=== PATIENT | female | born 1985 | race Caucasian/White ===

== ENCOUNTER 2020-07-03 09:42 | Emergency (ER) | payer SELFPAY ==
[2020-07-03] MEDS ORDERED: CEFTRIAXONE 250 MG/VIAL ONE (10:43)
[2020-07-03] MEDS ORDERED: LIDOCAINE 1% MPF 2 ML AMPULE ONE (10:43)
[2020-07-03] MEDS ORDERED: AZITHROMYCIN 250 MG TAB ONE (10:43)
[2020-07-03 10:53] LABS: Urine Blood NEGATIVE (NEG); Urine Glucose NEGATIVE (NEG); Urine Protein NEGATIVE (NEG); Urine Specific Gravity 1.025 (1.005-1.030)
[2020-07-03 10:54] LABS: Urine Bacteria <20 /HPF (<20); Urine Culture Reflex Order NOT NEEDED; Urine Mucus 1+ /HPF (NONE SEEN); Urine RBC <5 /HPF (NONE SEEN)
--- NOTE | 2020-07-03 11:43 | EDPHYS ---
Physician Documentation [facility] Name: Wendy Hernandez Age: 35 yrs Sex: Female : 1985 Arrival Date: 07/03/2020 Time: 09:43 Bed 20 Private MD: ED Physician Bryce Graff HPI: 07/03 10:26 This 35 yrs old Female presents to ER via Ambulatory with complaints of STD pm1 Exposure, Skin Sore(s). 10:26 The patient presents with vaginal discharge, that is white discharge. Onset: The pm1 symptoms/episode began/occurred 2 day(s) ago. Modifying factors: The symptoms are alleviated by nothing, the symptoms are aggravated by nothing. Associated signs and symptoms: Pertinent positives: blisters to feet and sores on mouth. Severity of symptoms: in the emergency department the symptoms are unchanged. The patient is sexually active, reportedly has a single partner, does not use protection during intercourse. The patient's method of control includes tubal ligation. The patient has not recently seen a physician. Patient is concerned that she might have a sexually transmitted disease because her boyfriend is likely cheating on her. She reports whitish vaginal discharge. No dysuria. Patient is concerned that her blisters on her feet are syphilitic but they started after she went hiking. 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 - Social history:: Smoking status: Patient reports the use of cigarette tobacco products, smokes one pack cigarettes per day. ROS: 15:09 Positive for vaginal discharge, Negative for burning with urination, difficulty pm1 urinating, vaginal bleeding, vaginal itching. 15:09 Constitutional: Negative for fever, chills, and weight loss, Cardiovascular: Negative for chest pain, palpitations, and edema, Respiratory: Negative for shortness of breath, cough, wheezing, and pleuritic chest pain, Abdomen/GI: Negative for abdominal pain, nausea, vomiting, diarrhea, and constipation, Back: Negative for injury and pain, MS/Extremity: Negative for injury and deformity. 15:09 Neuro: Negative for headache, weakness, numbness, tingling, and seizure. 15:09 Skin: Positive for blisters to sides of both feet and toes. Exam: 10:23 : Pelvic Exam: External exam: is normal, Speculum exam: normal findings, no bleeding pm1 is noted, no cervicitis, bimanual exam reveals normal findings, no cervical motion tenderness, no uterine tenderness, no adnexa tenderness or masses bilaterally, Resort Keeper: Yenny NULL. 15:09 Constitutional: This is a well developed, well nourished patient who is awake, alert, pm1 and in no acute distress. Head/Face: Normocephalic, atraumatic. 15:09 Back: No spinal tenderness. No costovertebral tenderness. Full range of motion. 15:09 Cardiovascular: Exam negative for acute changes, Rate: normal, Rhythm: regular, Pulses: no pulse deficits are appreciated. 15:09 Respiratory: Exam negative for acute changes, respiratory distress, shortness of breath. 15:09 Abdomen/GI: Exam negative for acute changes, Inspection: abdomen appears normal, Palpation: abdomen is soft and non-tender, in all quadrants. 15:09 Skin: Appearance: normal except for affected area, lesion(s), probable bullae noted, located on the lateral side of left heel, no macular rash to soles or palms. 15:09 Neuro: Exam negative for acute changes, Orientation: is normal, Mentation: is normal, Motor: is normal, moves all fours. Vital Signs: 10:09 BP 130 / 101; Pulse 105; Resp 17 S; Temp 99.1(O); Pulse Ox 98% on R/A; Weight 89.81 kg ca1 (R); Height 5 ft. 5 in. (165.10 cm) (R); 11:53 BP 130 / 89; Pulse 97; Resp 14; Pulse Ox 100% ; sv 10:09 Body Mass Index 32.95 (89.81 kg, 165.10 cm) ca1 MDM: 10:00 Patient medically screened. pm1 11:39 Data reviewed: vital signs. Data interpreted: Pulse oximetry: on room air is 98 %. pm1 Interpretation: normal. Counseling: I had a detailed discussion with the patient and/or guardian regarding: the historical points, exam findings, and any diagnostic results supporting the discharge/admit diagnosis, lab results, the need for outpatient follow up, STD clinic or PCP, to return to the emergency department if symptoms worsen or persist or if there are any questions or concerns that arise at home. 07/03 10:14 Order name: Urine Microscopic Only; Complete Time: 11:19 pm1 07/03 10:19 Order name: GC (GONORR/CHLAMYDIA) Probe sv 07/03 10:19 Order name: Wet Prep; Complete Time: 11:19 sv 07/03 10:41 Order name: Urine Dipstick--Ancillary (enter results); Complete Time: 11:19 eb 07/03 10:14 Order name: Urine Dipstick-Ancillary (obtain specimen); Complete Time: 10:35 pm1 07/03 10:14 Order name: Urine Test (obtain specimen); Complete Time: 10:35 pm1 07/03 10:41 Order name: Urine --Ancillary (enter results); Complete Time: 11:19 eb Administered Medications: 10:35 Drug: Rocephin (cefTRIAXone) 250 mg Route: IM; Site: right gluteus; sv 11:08 Follow up: Response: No adverse reaction sv 10:35 Drug: AZITHromycin 1 grams Route: PO; sv 11:08 Follow up: Response: No adverse reaction sv Disposition: 14:28 Co-signature as Attending Physician, Bryce Graff MD. rn Disposition: 07/03/20 11:42 Discharged to Home. Impression: Contact with and (suspected) exposure to infections with a predominantly sexual mode of transmission, Blister (nonthermal) of foot. - Condition is Stable. - Discharge Instructions: Blisters, Adult, Sexually Transmitted Disease, Sexually Transmitted Disease, [id number], Safe Sex. - Medication Reconciliation Form, Thank You Letter, Antibiotic Education, Prescription Opioid Use form. - Follow up: Emergency Department; When: As needed; Reason: Worsening of condition. Follow up: Private Physician; When: 2 - 3 days; Reason: Recheck today's complaints, Continuance of care, Re-evaluation by your physician. - Problem is new. - Symptoms have improved. Signatures: Dispatcher [employer] Yenny Servin RN RN sv Nieto, Roman, MD MD rn Marinas, Patrick, SOFTWARE DEPLOYMENT ENGINEER SOFTWARE DEPLOYMENT ENGINEER pm1 Corrections: (The following items were deleted from the chart) 11:53 11:42 07/03/2020 11:42 Discharged to Home. Impression: Contact with and (suspected) sv exposure to infections with a predominantly sexual mode of transmissionBlister (nonthermal) of foot. Condition is Stable. Forms are Medication Reconciliation Form, Thank You Letter, Antibiotic Education, Prescription Opioid Use. Follow up: Emergency Department; When: As needed; Reason: Worsening of condition. Follow up: Private Physician; When: 2 - 3 days; Reason: Recheck today's complaints, Continuance of care, Re-evaluation by your physician. Problem is new. Symptoms have improved. pm1
--- NOTE | 2020-07-03 11:43 | ER ---
Nurse's Notes [facility] Name: Wendy Hernandez Age: 35 yrs Sex: Female : 1985 Arrival Date: 07/03/2020 Time: 09:43 Bed 20 Private MD: Diagnosis: Blister (nonthermal) of foot;Contact with and (suspected) exposure to infections with a predominantly sexual mode of transmission Presentation: 07/03 10:08 Coronavirus screen: Client denies travel out of the [place] in the last 14 days. At this sv time, the client does not indicate any symptoms associated with coronavirus-19. Ebola Screen: No symptoms or risks identified at this time. Risk Assessment: Do you want to hurt yourself or someone else? Patient reports no desire to harm self or others. 10:08 Method Of Arrival: Ambulatory sv 10:09 Chief complaint: Patient states: Pt crying. Sates, "Blisters on sole of feet. Sore in ca1 mouth and tongue. Whitish vaginal discharge, with odor". Initial Sepsis Screen: Does the patient meet any 2 criteria? No. Patient's initial sepsis screen is negative. Does the patient have a suspected source of infection? No. Patient's initial sepsis screen is negative. Onset of symptoms was July 03, 2020. 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 - Social history:: Smoking status: Patient reports the use of cigarette tobacco products, smokes one pack cigarettes per day. Screenin:06 Abuse screen: Denies threats or abuse. Denies injuries from another. Nutritional sv screening: No deficits noted. Tuberculosis screening: No symptoms or risk factors identified. Fall Risk None identified. Assessment: 10:15 General: Appears in no apparent distress. comfortable, well developed, Behavior is sv cooperative, appropriate for age, anxious. Pain: Denies pain. Neuro: Level of Consciousness is awake, alert, obeys commands, Oriented to person, place, time, situation, Moves all extremities. Full function Gait is steady. Respiratory: Respiratory effort is even, unlabored, Respiratory pattern is regular, symmetrical. : Reports discharge, from vagina that is white. Derm: Skin is intact, Skin is pink, warm \\T\\ dry. Rash noted that is on right hand, left hand, right foot and left foot. Musculoskeletal: Range of motion: intact in all extremities. 11:52 Reassessment: Patient appears in no apparent distress at this time. No changes from sv previously documented assessment. Patient and/or family updated on plan of care and expected duration. Pain level reassessed. Patient is alert, oriented x 3, equal unlabored respirations, skin warm/dry/pink. Vital Signs: 10:09 BP 130 / 101; Pulse 105; Resp 17 S; Temp 99.1(O); Pulse Ox 98% on R/A; Weight 89.81 kg ca1 (R); Height 5 ft. 5 in. (165.10 cm) (R); 11:53 BP 130 / 89; Pulse 97; Resp 14; Pulse Ox 100% ; sv 10:09 Body Mass Index 32.95 (89.81 kg, 165.10 cm) ca1 ED Course: 09:43 Patient arrived in ED. as 09:51 Yenny Morrell RN is Primary Nurse. sv 09:52 Delfin Johnson NP is PHCP. pm1 09:52 Bryce Graff MD is Attending Physician. pm1 09:54 Patient's name was called from ER lobby. No response. sv 10:05 Yenny Morrell RN is Primary Nurse. sv 10:05 Nurse Practitioner and/or Physician Turf Manager to see patient. sv 10:06 Patient has correct armband on for positive identification. Bed in low position. Call sv light in reach. Door closed. Head of bed elevated. 10:09 Arm band placed on right wrist. ca1 10:11 Triage completed. ca1 10:15 Assist provider with pelvic exam: Set up pelvic tray. Performed by Delfin Johnson NP sv Specimens sent to lab. Patient tolerated well. 11:07 Awaiting lab results. sv 11:52 Patient did not have IV access during this emergency room visit. sv Administered Medications: 10:35 Drug: Rocephin (cefTRIAXone) 250 mg Route: IM; Site: right gluteus; sv 11:08 Follow up: Response: No adverse reaction sv 10:35 Drug: AZITHromycin 1 grams Route: PO; sv 11:08 Follow up: Response: No adverse reaction sv Outcome: 11:42 Discharge ordered by . pm1 11:52 Discharged to home ambulatory. sv 11:52 Condition: stable 11:52 Discharge instructions given to patient, Instructed on discharge instructions, follow up and referral plans. safe sex practices, Demonstrated understanding of instructions, follow-up care. 11:53 Patient left the ED. sv Signatures: Yenny Morrell RN RN Crystal Gooden Patrick, NP SHOE CUTTER pm1 Lilia Hayward RN RN ca1
[2020-07-03 12:34] VITALS: TEMP 99.1
[2020-07-03 12:38] VITALS: BP 130/89; O2SAT 100
[2020-07-06 05:42] LABS: C.trachomatis RNA,TMA Not Detected (Not Detected)
== END 2020-07-03 11:53 | disposition home or self-care (01) ==
LOC: ER 09:42
DX: S90.822A Blister (nonthermal), left foot, initial encounter (principal); S90.821A Blister (nonthermal), right foot, initial encounter; X58.XXXA Exposure to other specified factors, initial encounter; Z20.2 Contact with and (suspected) exposure to infections with a predominantly sexual mode of transmission
CPT/HCPCS: 81003; 81015; 81025; 87210; 87490; 87590; 96372; 99284; J0696; J2001